=== PATIENT | female | born 1955 | race Caucasian/White ===

== ENCOUNTER 2017-03-15 14:03 | Inpatient (IN) | payer OTHER ==
[~2017-03-15] VITALS: Ht 152.4 cm; Wt 41.5 kg
[~2017-03-15 14:03] MED LIST: ACYC-114 PO; ALPR-475 PO; CITA20TA9 PO; CLOP75TA22 PO; LANS15TA5 PO; LEVO25TA2 PO; METO50TA82 PO; OXYC-302 PO; ROSU5TAB PO; SOLI5TAB PO; TRAZ150T68 PO
[2017-03-15] MEDS ORDERED: DILTIAZEM 5 MG/ML, 5ML IVPush STA (14:34)
[2017-03-15] MEDS ORDERED: DILTIAZEM 125 MG in DEXTROSE 5% 100 ML IV SCH (14:34)
[2017-03-15] MEDS ORDERED: SODIUM CHLORIDE FLUSH 10ML SYR IVF ONE (15:00)
[2017-03-15] MEDS ORDERED: SODIUM CHLORIDE 0.9% 1,000ML IVBOLUS ONE (15:00)
[2017-03-15 15:04] LABS: ASPARTATE AMINO TRANSFERASE 31 U/L (15-37); BLOOD UREA NITROGEN 27 mg/dL (7-18)
[2017-03-15] MEDS ORDERED: DILTIAZEM 5 MG/ML, 5ML ONE (15:10)
[2017-03-15 15:12] LABS: IS PT STATUS REG ER OR PRE ER? YES
[2017-03-15] MEDS ORDERED: HEPARIN 25,000 UNITS/500ML PMX 500 ML ONE (15:59)
[2017-03-15] MEDS ORDERED: HEPARIN 5,000 UNITS/ML, 1ML ONE (15:59)
[2017-03-15] MEDS ORDERED: HEPARIN 5,000 UNITS/ML, 1ML IV PRN ×2 (16:00→17:00)
[2017-03-15] MEDS ORDERED: HEPARIN 5,000 UNITS/ML, 1ML IV ONE ×2 (16:00→17:00)
[2017-03-15] MEDS ORDERED: HEPARIN 25,000 UNITS/500ML PMX 500 ML IV PRN ×2 (16:00→17:00)
[2017-03-15 16:31] VITALS: BP 124/67
[2017-03-15] MEDS ORDERED: HYDROcodone/APAP 5/325 TABLET PO PRN (18:00)
[2017-03-15] MEDS ORDERED: ONDANSETRON 2MG/ML, 2ML IVPush PRN (18:00)
[2017-03-15] MEDS ORDERED: DILTIAZEM 5 MG/ML, 5ML IVPush PRN (18:00)
[2017-03-15] MEDS ORDERED: morphine SULFATE 10 MG/ML, 1ML IVPush PRN (18:00)
[2017-03-15] MEDS ORDERED: hydrALAzine 20 MG/ML, 1ML IVPush PRN (18:00)
[2017-03-15] MEDS ORDERED: ACETAMINOPHEN 325 MG TABLET PO PRN (18:00)
[2017-03-15 20:00] VITALS: BP 116/60
[2017-03-15] MEDS: DILTIAZEM 60 MG TABLET PO SCH (20:19)
[2017-03-15 22:54] LABS: IS PT STATUS REG ER OR PRE ER? NO
[2017-03-16] MEDS: TEMAZEPAM 15 MG CAPSULE PO PRN ×2 (00:23→22:33)
[2017-03-16 01:15] VITALS: BP 127/66
[2017-03-16] MEDS: DILTIAZEM 60 MG TABLET PO SCH ×3 (02:45→21:00)
[2017-03-16 04:46] LABS: ASPARTATE AMINO TRANSFERASE 26 U/L (15-37); BLOOD UREA NITROGEN 24 mg/dL (7-18)
[2017-03-16 04:52] LABS: IS PT STATUS REG ER OR PRE ER? NO
[2017-03-16] MEDS: LEVOTHYROXINE 25 MCG TABLET PO SCH (06:12)
[2017-03-16 06:34] VITALS: BP 108/61
[2017-03-16] MEDS: TEMPLATE NON-FORMULARY MED. (Solifenacin Succinate** (Vesicare**) 5 MG) PO SCH (08:19)
[2017-03-16] MEDS: PANTOPROZOLE 40MG TABLET PO SCH (08:23)
[2017-03-16] MEDS ORDERED: CLOPIDOGREL 75 MG TABLET PO SCH (09:00)
[2017-03-16] MEDS ORDERED: ATORVASTATIN 10 MG TABLET PO SCH (09:00)
[2017-03-16 10:35] LABS: DAU SCREEN DISCLAIMER
[2017-03-16] MEDS ORDERED: TRAZODONE 50MG TABLET PO PRN (12:30)
[2017-03-16 13:16] VITALS: BP 115/64
[2017-03-16] MEDS: CITALOPRAM 20 MG TABLET PO SCH (16:56)
[2017-03-16] MEDS ORDERED: HEPARIN 25,000 UNITS/500ML PMX 500 ML IV PRN (17:00)
[2017-03-16 19:56] VITALS: BP 159/71
[2017-03-16 21:22] VITALS: BP 154/71
[2017-03-16] MEDS: DABIGATRAN 150 MG CAPSULE PO SCH (21:28)
[2017-03-17 03:00] VITALS: BP 133/52
[2017-03-17 05:51] VITALS: BP 150/63
[2017-03-17] MEDS: LEVOTHYROXINE 25 MCG TABLET PO SCH (05:57)
[2017-03-17] MEDS: DILTIAZEM 60 MG TABLET PO SCH (07:22)
[2017-03-17] MEDS: TEMPLATE NON-FORMULARY MED. (Solifenacin Succinate** (Vesicare**) 5 MG) PO SCH (07:22)
[2017-03-17] MEDS: DABIGATRAN 150 MG CAPSULE PO SCH (07:30)
[2017-03-17] MEDS: PANTOPROZOLE 40MG TABLET PO SCH (07:30)
[2017-03-17] MEDS: CITALOPRAM 20 MG TABLET PO SCH (07:30)
[2017-03-17 07:45] VITALS: BP 127/59
[2017-03-17] MEDS ORDERED: DABI150C PO (13:18)
[2017-03-17 13:20] VITALS: BP 135/61
== END 2017-03-17 14:37 | disposition home or self-care (01) | DRG 308 ==
LOC: ED 14:53 → EDIP 15:30 → 5SO 16:24
PROVIDERS: ADMIT Hospitalist; ATTEND Internal Medicine
DX: I48.0 Paroxysmal atrial fibrillation (principal); N17.0 Acute kidney failure with tubular necrosis; I11.9 Hypertensive heart disease without heart failure; E03.9 Hypothyroidism, unspecified; E78.5 Hyperlipidemia, unspecified; F12.90 Cannabis use, unspecified, uncomplicated; K21.9 Gastro-esophageal reflux disease without esophagitis; R00.1 Bradycardia, unspecified; M32.9 Systemic lupus erythematosus, unspecified; M19.90 Unspecified osteoarthritis, unspecified site; F32.9 Major depressive disorder, single episode, unspecified; I08.3 Combined rheumatic disorders of mitral, aortic and tricuspid valves; I25.10 Atherosclerotic heart disease of native coronary artery without angina pectoris; I25.2 Old myocardial infarction; Z86.73 Personal history of transient ischemic attack (TIA), and cerebral infarction without residual deficits; Z87.891 Personal history of nicotine dependence; Z95.5 Presence of coronary angioplasty implant and graft; Z98.84 Bariatric surgery status; Z79.01 Long term (current) use of anticoagulants
CPT/HCPCS: 36415; 71010; 80053; 80307; 81003; 83735; 83880; 84100; 84443; 84484; 85025; 85520; 85610; 85730; 93005; 93306; 96365; 96375; J1644; J7030

== ENCOUNTER 2017-07-16 11:07 | Observation (INO) | payer OTHER ==
[2017-07-13 14:31] VITALS: BP 134/63
[2017-07-13 14:41] LABS: HEMOGLOBIN 14.3 g/dL (11.7-16.4); WHITE BLOOD COUNT 6.9 x10^3/uL (3.4-10)
[2017-07-13 14:48] LABS: BLOOD UREA NITROGEN 21 mg/dL (7-18)
[~2017-07-16] VITALS: Ht 152.4 cm; Wt 42.6 kg
[~2017-07-16 11:07] MED LIST changes: +CEFAZOLIN 1,000 MG ONE; -CLOP75TA22 PO; +CLOP75TA52 PO; +DABI150C PO; +DEXAMETHASONE 4 MG/ML, 1ML ONE; -LANS15TA5 PO; +LANS15TA6 PO; +ONDANSETRON 2MG/ML, 2ML ONE; +PROPOFOL 10 MG/ML, 20ML ONE; +ROCURONIUM 10 MG/ML ONE; -SOLI5TAB PO; +SOLI5TAB2 PO; +SUCCINYLCHOLINE 20 MG/ML, 10ML ONE; +TRAZ150T62 PO; -TRAZ150T68 PO
[2017-07-16] MEDS ORDERED: SODIUM CHLORIDE 0.9% 1,000 ML IV SCH (11:26)
[2017-07-16] MEDS ORDERED: CEFAZOLIN PMX 1GM/50ML 50 ML IVPB ONE (11:30)
[2017-07-16] MEDS ORDERED: LIDOCAINE 2%, 20ML ONE (12:14)
[2017-07-16] MEDS ORDERED: CEFAZOLIN 1,000 MG ONE (12:14)
[2017-07-16] MEDS ORDERED: FENTANYL PF 100 MCG/2ML ONE (12:20)
[2017-07-16] MEDS ORDERED: MIDAZOLAM 1 MG/ML, 5ML ONE (12:20)
[2017-07-16] MEDS ORDERED: PROMETHAZINE 25 MG/ML, 1ML IV PRN (15:00)
[2017-07-16] MEDS ORDERED: OXYcodone 5 MG/5 ML ORAL.SOL UDC PO PRN (15:00)
[2017-07-16] MEDS ORDERED: ACETAMINOPHEN 325 MG TABLET PO PRN (15:00)
[2017-07-16] MEDS ORDERED: LABETALOL 5MG/ML, 20ML IV PRN (15:00)
[2017-07-16] MEDS ORDERED: EPHEDRINE 50 MG/ML, 1ML IVPush PRN (15:00)
[2017-07-16] MEDS ORDERED: MIDAZOLAM 1 MG/ML, 2ML IV PRN (15:00)
[2017-07-16] MEDS ORDERED: MEPERIDINE/PF 25MG/0.5ML IVPush PRN (15:00)
[2017-07-16] MEDS ORDERED: HYDROmorphone 1 MG/ML, 1ML IV PRN (15:00)
[2017-07-16] MEDS ORDERED: ONDANSETRON 2MG/ML, 2ML IVPush PRN (15:00)
[2017-07-16] MEDS ORDERED: FENTANYL PF 100 MCG/2ML IV PRN (15:00)
[2017-07-16] MEDS ORDERED: OXYcodone 5 MG/5 ML ORAL.SOL UDC ONE (15:23)
[2017-07-16] MEDS ORDERED: ZOLPIDEM 5MG TABLET PO PRN (16:00)
[2017-07-16] MEDS ORDERED: VANCOMYCIN PMX 1GM/200ML 200 ML IVPB SCH (16:00)
[2017-07-16 16:48] VITALS: BP 126/54
[2017-07-16] MEDS ORDERED: ACYC-113 PO (17:00)
[2017-07-16] MEDS ORDERED: DEXL60CA2 PO (17:00)
[2017-07-16] MEDS ORDERED: HYDROcodone/APAP 5/325 TABLET PO PRN (17:30)
[2017-07-16] MEDS: HYDROcodone/APAP 5/325 TABLET PO PRN (18:38)
[2017-07-16 19:41] VITALS: BP 121/68
[2017-07-16] MEDS ORDERED: ATORVASTATIN 10 MG TABLET PO SCH (21:00)
[2017-07-16] MEDS ORDERED: TRAZODONE 150MG TABLET PO SCH (21:00)
[2017-07-16] MEDS: OXYBUTYNIN CHLORIDE 5 MG TABLET PO SCH (21:49)
[2017-07-16] MEDS: SODIUM CHLORIDE FLUSH 10ML SYR IVF SCH (21:50)
[2017-07-17 01:59] VITALS: BP 144/72
[2017-07-17] MEDS ORDERED: LEVOTHYROXINE 25 MCG TABLET PO SCH (06:00)
[2017-07-17] MEDS: HYDROcodone/APAP 5/325 TABLET PO PRN (06:09)
[2017-07-17] MEDS ORDERED: PANTOPROZOLE 40MG TABLET PO SCH (07:30)
[2017-07-17] MEDS ORDERED: CITALOPRAM 20 MG TABLET ONE (07:57)
[2017-07-17 08:01] VITALS: BP 111/66
[2017-07-17] MEDS: OXYBUTYNIN CHLORIDE 5 MG TABLET PO SCH (08:03)
[2017-07-17] MEDS: SODIUM CHLORIDE FLUSH 10ML SYR IVF SCH (08:03)
[2017-07-17] MEDS ORDERED: CITALOPRAM 20 MG TABLET PO SCH (09:00)
[2017-07-17] MEDS ORDERED: HYDR-3240 PO (09:13)
[2017-07-17] MEDS ORDERED: ASPI-515 PO (09:13)
== END 2017-07-17 10:50 | disposition home or self-care (01) ==
LOC: CACL 11:07 → ORIP 15:33 → 5SO 15:47 → DCLOUNGE 07-17 10:43
PROVIDERS: ADMIT Internal Medicine Cardiovascular Disease; ATTEND Internal Medicine Cardiovascular Disease
DX: I49.5 Sick sinus syndrome (principal); I48.0 Paroxysmal atrial fibrillation; R55 Syncope and collapse; I10 Essential (primary) hypertension; I25.10 Atherosclerotic heart disease of native coronary artery without angina pectoris; E03.9 Hypothyroidism, unspecified; E78.00 Pure hypercholesterolemia, unspecified
CPT/HCPCS: 33208; 36415; 71010; 80048; 85025; 96365; C1779; C1785; C1892; G0378; J0330; J0690; J1100; J2250; J2405; J2704; J3010; J3370; J3490

== ENCOUNTER → 2018-03-14 | Outpatient (CLI) | payer MEDICARE ==
[~2018-03-14] MED LIST changes: +ACYC-113 PO; +ASPI-515 PO; -CEFAZOLIN 1,000 MG ONE; -DEXAMETHASONE 4 MG/ML, 1ML ONE; +DEXL60CA2 PO; +HYDR-3240 PO; -ONDANSETRON 2MG/ML, 2ML ONE; -PROPOFOL 10 MG/ML, 20ML ONE; -ROCURONIUM 10 MG/ML ONE; -SUCCINYLCHOLINE 20 MG/ML, 10ML ONE
== END | disposition home or self-care (01) ==
LOC: RAD 13:49
PROVIDERS: ATTEND Family Medicine
DX: M48.061 Spinal stenosis, lumbar region without neurogenic claudication (principal); M47.16 Other spondylosis with myelopathy, lumbar region; M47.896 Other spondylosis, lumbar region; M41.86 Other forms of scoliosis, lumbar region
CPT/HCPCS: 72148

== ENCOUNTER → 2018-04-11 | Outpatient (CLI) | payer MEDICARE | END | disposition home or self-care (01) | LOC: CVU 14:31 | PROVIDERS: ATTEND Family Medicine | DX: I73.9 Peripheral vascular disease, unspecified (principal); I25.10 Atherosclerotic heart disease of native coronary artery without angina pectoris; E11.9 Type 2 diabetes mellitus without complications; E78.5 Hyperlipidemia, unspecified; G45.9 Transient cerebral ischemic attack, unspecified | CPT/HCPCS: 93922 ==

== ENCOUNTER → 2018-11-11 | Outpatient (CLI) | payer MEDICARE | END | disposition home or self-care (01) | LOC: CFH 12:46 | PROVIDERS: ATTEND Internal Medicine Cardiovascular Disease | DX: I08.3 Combined rheumatic disorders of mitral, aortic and tricuspid valves (principal); I11.9 Hypertensive heart disease without heart failure; I25.10 Atherosclerotic heart disease of native coronary artery without angina pectoris; M47.817 Spondylosis without myelopathy or radiculopathy, lumbosacral region; M48.061 Spinal stenosis, lumbar region without neurogenic claudication; M51.37 Other intervertebral disc degeneration, lumbosacral region; M48.07 Spinal stenosis, lumbosacral region; M41.86 Other forms of scoliosis, lumbar region; M25.78 Osteophyte, vertebrae; I49.5 Sick sinus syndrome; I25.2 Old myocardial infarction; I48.91 Unspecified atrial fibrillation; Z79.01 Long term (current) use of anticoagulants; Z95.0 Presence of cardiac pacemaker; Z86.73 Personal history of transient ischemic attack (TIA), and cerebral infarction without residual deficits; Z95.818 Presence of other cardiac implants and grafts | CPT/HCPCS: 72148; 93306 ==

== ENCOUNTER → 2018-11-29 | Outpatient (CLI) | payer MEDICARE ==
[~2018-11-29] MED LIST changes: +escitalopram PO
[2018-11-29 13:55] LABS: BASOPHILS # (AUTO) 0.04 x10^3/uL (0-0.1); BASOPHILS % (AUTO) 1 % (0-1); EOSINOPHILS # (AUTO) 0.18 x10^3/uL (0-0.4); EOSINOPHILS % (AUTO) 3 % (1-7); LYMPHOCYTES # (AUTO) 1.84 x10^3/uL (1-3.4); LYMPHOCYTES % (AUTO) 28 % (22-44); MD NO; MEAN CORPUSCULAR HEMOGLOBIN 32.4 pg (27.0-34.8); MEAN CORPUSCULAR HGB CONC 33.8 g/dL (32.4-35.8); MEAN CORPUSCULAR VOLUME 95.9 fL (80-100); MEAN PLATELET VOLUME 8.3 fL (7.4-10.4); MONOCYTES # (AUTO) 0.41 x10^3/uL (0.2-0.8); MONOCYTES % (AUTO) 6 % (2-9); NEUTROPHILS # (AUTO) 4.04 x10^3/uL (1.8-6.8); NEUTROPHILS % (AUTO) 62 % (42-75); PLATELET COUNT 201 x10^3/uL (130-400); RED BLOOD COUNT 3.89 x10^6/uL (3.82-5.3); RED CELL DISTRIBUTION WIDTH 15.4 % (9.6-15.2)
[2018-11-29 14:03] LABS: INTERNATIONAL NORMALIZED RATIO 1.1 (0.93-1.1); PROTHROMBIN TIME 11.5 Seconds (9.6-11.5)
[2018-11-29 14:04] LABS: ANION GAP 6 mmol/L (5-15); CALCIUM 8.9 mg/dL (8.5-10.1); CHLORIDE 107 mmol/L (98-107); CREATININE 1.14 mg/dL (0.55-1.02)
== END | disposition home or self-care (01) ==
LOC: STAR 12:30
PROVIDERS: ATTEND Neurological Surgery
DX: Z01.818 Encounter for other preprocedural examination (principal); M43.10 Spondylolisthesis, site unspecified
CPT/HCPCS: 36415; 71046; 80048; 85025; 85610; 85730; 93005

== ENCOUNTER 2019-07-02 13:00 | Outpatient (CLI) | payer MEDICARE ==
[~2019-07-02 13:00] MED LIST changes: -ALPR-475 PO; +ALPR0.5T7 PO; +APIX5TAB PO; +DILT180C53 PO; +ESCI20TA PO; +GABA100C PO; +GABA300C10 PO; +METO25TA91 PO
== END 2019-07-02 23:59 | disposition home or self-care (01) ==
LOC: RAD 13:00
PROVIDERS: ATTEND Neurological Surgery
DX: M51.36 Other intervertebral disc degeneration, lumbar region (principal); M48.061 Spinal stenosis, lumbar region without neurogenic claudication; N28.1 Cyst of kidney, acquired; M79.662 Pain in left lower leg; M79.661 Pain in right lower leg
CPT/HCPCS: 72148

== ENCOUNTER 2019-07-25 16:40 | Inpatient (IN) | payer MEDICARE ==
[~2019-07-25] VITALS: Ht 152.4 cm; Wt 47.0 kg
--- NOTE | 2019-07-25 17:11 | NUR ---
PT SENT TO ED FROM [facility]. PT C/O HI HR X10 DAYS. DENIES CP, BUT CAN FEEL HEART BEATING IN HER CHEST. PACEMAKER PLACED WITHIN THE LAST YEAR. CONNECTED TO MONITORING. CALL LIGHT IN REACH. AT BEDSIDE. MD AT BEDSIDE, AWAITING ORDERS AT THIS TIME.
[2019-07-25] MEDS ORDERED: DILTIAZEM 5 MG/ML, 5ML IV ONE (17:30)
[2019-07-25] MEDS ORDERED: ONDANSETRON 2MG/ML, 2ML IVPush ONE (17:30)
--- NOTE | 2019-07-25 17:42 | NUR ---
TASK RN: RECEIVED BEDSIDE REPORT FROM SAM JAVIER.
[2019-07-25] MEDS ORDERED: ONDANSETRON 2MG/ML, 2ML ONE (17:44)
[2019-07-25] MEDS ORDERED: DILTIAZEM 5 MG/ML, 5ML ONE (17:44)
[2019-07-25 17:56] LABS: ALBUMIN 3.3 g/dL (3.4-5.0); ANION GAP 3 mmol/L (5-15); CALCIUM 7.8 mg/dL (8.5-10.1); CHLORIDE 111 mmol/L (98-107)
--- NOTE | 2019-07-25 17:56 | NUR ---
TASK RN: medication adminstered per order. pt hr now 85-90, nadn. pt tolerated with no complications.
[2019-07-25 17:57] LABS: CREATININE 1.05 mg/dL (0.55-1.02)
--- NOTE | 2019-07-25 18:22 | NUR ---
LATE ENTRY FOR 1814: BEDSIDE REPORT TO SAM JAVIER.
--- NOTE | 2019-07-25 19:21 | NUR ---
PT AMBULATED TO RESTROOM WITH STEADY GAIT. Addendum: 07/25/19 at 1930 by NOAH PT STATES SHE FEELS A LITTLE DIZZY WHILE WALKING AND WANTS TO TALK TO THE MD AGAIN. MD NOTIFIED.
--- NOTE | 2019-07-25 19:42 | NUR ---
NEW ORDERS ADDED AT THIS TIME.
--- NOTE | 2019-07-25 20:08 | NUR ---
HOSPITALIST AT BEDSIDE.
[2019-07-25 20:22] LABS: TROPONIN I < 0.015 ng/mL (0.000-0.045)
[2019-07-25] MEDS ORDERED: BISACODYL 10 MG SUPP PR PRN (20:30)
[2019-07-25] MEDS ORDERED: ONDANSETRON ODT 4 MG PO PRN (20:30)
[2019-07-25] MEDS ORDERED: ACETAMINOPHEN 325 MG TABLET PO PRN (20:30)
[2019-07-25] MEDS ORDERED: POLYETHYLENE GLYCOL 17 GM PACKET PO PRN (20:30)
--- NOTE | 2019-07-25 20:51 | NUR ---
REPORT GIVEN TO ANISH VARGAS.
[2019-07-25 20:58] LABS: BASOPHILS # (AUTO) 0.03 x10^3/uL (0-0.1); BASOPHILS % (AUTO) 1 % (0-1); EOSINOPHILS # (AUTO) 0.16 x10^3/uL (0-0.4); EOSINOPHILS % (AUTO) 4 % (1-7); LYMPHOCYTES # (AUTO) 1.85 x10^3/uL (1-3.4); LYMPHOCYTES % (AUTO) 44 % (22-44); MD NO; MEAN CORPUSCULAR HEMOGLOBIN 24.4 pg (27.0-34.8); MEAN PLATELET VOLUME 9.3 fL (7.4-10.4); MONOCYTES # (AUTO) 0.32 x10^3/uL (0.2-0.8); MONOCYTES % (AUTO) 8 % (2-9); NEUTROPHILS # (AUTO) 1.84 x10^3/uL (1.8-6.8); NEUTROPHILS % (AUTO) 44 % (42-75); PLATELET COUNT 198 x10^3/uL (130-400); RED BLOOD COUNT 4.12 x10^6/uL (3.82-5.3)
[2019-07-25] MEDS ORDERED: TEMPLATE NON-FORMULARY MED. (Solifenacin Succinate** (Vesicare**) 5 MG) PO SCH (21:00)
[2019-07-25 21:30] VITALS: BP 113/62
[2019-07-25] MEDS ORDERED: TRAZODONE 100MG TABLET ONE (21:33)
[2019-07-25] MEDS ORDERED: GABAPENTIN 100 MG CAPSULE ONE (21:33)
[2019-07-25] MEDS: SODIUM CHLORIDE FLUSH 10ML SYR IVF SCH (21:42)
[2019-07-25] MEDS: GABAPENTIN 100 MG CAPSULE PO SCH (21:43)
[2019-07-25] MEDS: ATORVASTATIN 20 MG TABLET PO SCH (21:43)
[2019-07-25] MEDS: APIXABAN 5 MG TABLET PO SCH (21:43)
[2019-07-25] MEDS: TRAZODONE 100MG TABLET PO SCH (21:43)
[2019-07-25 21:59] VITALS: BP 128/89
[2019-07-26 02:13] VITALS: BP 95/59
[2019-07-26] MEDS: LEVOTHYROXINE 25 MCG TABLET PO SCH (05:07)
[2019-07-26 05:57] LABS: BASOPHILS # (AUTO) 0.06 x10^3/uL (0-0.1); BASOPHILS % (AUTO) 1 % (0-1); EOSINOPHILS # (AUTO) 0.19 x10^3/uL (0-0.4); EOSINOPHILS % (AUTO) 4 % (1-7); LYMPHOCYTES # (AUTO) 2.24 x10^3/uL (1-3.4); LYMPHOCYTES % (AUTO) 50 % (22-44); MD NO; MEAN CORPUSCULAR HEMOGLOBIN 25.1 pg (27.0-34.8); MEAN CORPUSCULAR HGB CONC 30.9 g/dL (32.4-35.8); MEAN CORPUSCULAR VOLUME 81.4 fL (80-100); MEAN PLATELET VOLUME 9.3 fL (7.4-10.4); MONOCYTES # (AUTO) 0.45 x10^3/uL (0.2-0.8); MONOCYTES % (AUTO) 10 % (2-9); NEUTROPHILS % (AUTO) 35 % (42-75); PLATELET COUNT 193 x10^3/uL (130-400); RED BLOOD COUNT 3.72 x10^6/uL (3.82-5.3); RED CELL DISTRIBUTION WIDTH 21.8 % (9.6-15.2)
[2019-07-26 06:02] LABS: ALBUMIN 3.1 g/dL (3.4-5.0); ANION GAP 3 mmol/L (5-15); CALCIUM 7.9 mg/dL (8.5-10.1); CHLORIDE 113 mmol/L (98-107)
[2019-07-26 06:10] LABS: ALANINE AMINOTRANSFERASE 18 U/L (12-78); ALKALINE PHOSPHATASE 111 U/L (45-117); BILIRUBIN,TOTAL 0.2 mg/dL (0.2-1.0); CREATININE 1.08 mg/dL (0.55-1.02); TROPONIN I < 0.015 ng/mL (0.000-0.045)
[2019-07-26 07:15] VITALS: BP 82/50
[2019-07-26] MEDS ORDERED: METOPROLOL SUCCINATE 25 MG TAB.ER.24H PO SCH ×2 (09:00→21:00)
[2019-07-26] MEDS: SENNA/DOCUSATE TABLET PO SCH (09:58)
[2019-07-26] MEDS: DILTIAZEM CD 180 MG CAP.ER.24H PO SCH (10:12)
[2019-07-26] MEDS: APIXABAN 5 MG TABLET PO SCH ×2 (10:13→21:23)
[2019-07-26] MEDS: PANTOPROZOLE 40MG TABLET PO SCH (10:13)
[2019-07-26] MEDS: OXYBUTYNIN CHLORIDE 5 MG TABLET PO SCH ×2 (10:14→21:23)
[2019-07-26] MEDS: GABAPENTIN 100 MG CAPSULE PO SCH ×2 (10:14→21:22)
[2019-07-26] MEDS: ESCITALOPRAM 10MG TABLET PO SCH (10:14)
[2019-07-26] MEDS: SODIUM CHLORIDE FLUSH 10ML SYR IVF SCH ×2 (10:15→21:24)
[2019-07-26] MEDS: METOPROLOL SUCCINATE 25 MG TAB.ER.24H PO SCH ×2 (10:25→21:24)
[2019-07-26] MEDS ORDERED: SODIUM CHLORIDE 0.9%, 500ML IVBOLUS ONE (10:30)
[2019-07-26 11:50] VITALS: BP 102/57
[2019-07-26 13:40] VITALS: BP 98/60
[2019-07-26 20:46] VITALS: BP 133/75
[2019-07-26 21:21] VITALS: BP 124/71
[2019-07-26] MEDS: ATORVASTATIN 20 MG TABLET PO SCH (21:23)
[2019-07-26] MEDS: TRAZODONE 100MG TABLET PO SCH (21:23)
[2019-07-27 02:56] VITALS: BP 127/82
[2019-07-27] MEDS: LEVOTHYROXINE 25 MCG TABLET PO SCH (06:13)
[2019-07-27 07:57] VITALS: BP 111/69
[2019-07-27] MEDS: GABAPENTIN 100 MG CAPSULE PO SCH (08:52)
[2019-07-27] MEDS: SENNA/DOCUSATE TABLET PO SCH (08:52)
[2019-07-27] MEDS: PANTOPROZOLE 40MG TABLET PO SCH (08:52)
[2019-07-27] MEDS: DILTIAZEM CD 180 MG CAP.ER.24H PO SCH (08:52)
[2019-07-27] MEDS: METOPROLOL SUCCINATE 25 MG TAB.ER.24H PO SCH (08:52)
[2019-07-27] MEDS: ESCITALOPRAM 10MG TABLET PO SCH (08:53)
[2019-07-27] MEDS: OXYBUTYNIN CHLORIDE 5 MG TABLET PO SCH (08:53)
[2019-07-27] MEDS: APIXABAN 5 MG TABLET PO SCH (08:53)
[2019-07-27] MEDS: SODIUM CHLORIDE FLUSH 10ML SYR IVF SCH (08:53)
[2019-07-27] MEDS ORDERED: METO25TA91 PO (11:45)
[2019-07-27] MEDS ORDERED: LEVO50TA PO (11:45)
[2019-07-27] MEDS ORDERED: FLU VACC QS2019-20 36MOS UP/PF 0.5 ML IM-VACC ONE (12:30)
[2019-07-28] MEDS ORDERED: PROPOFOL 10 MG/ML, 20ML ONE (13:31)
[2019-07-28] MEDS ORDERED: SUCCINYLCHOLINE 20 MG/ML, 10ML ONE (13:31)
[2019-07-28] MEDS ORDERED: LIDOCAINE-MPF 2% ,5ML ONE (13:31)
== END 2019-07-27 13:56 | disposition home or self-care (01) | DRG 309 ==
LOC: ED 19:58 → EDIP 20:15 → 5SO 21:23
PROVIDERS: ADMIT Internal Medicine; ATTEND Family Medicine
DX: I48.91 Unspecified atrial fibrillation (principal); D68.69 Other thrombophilia; Z79.01 Long term (current) use of anticoagulants; E03.9 Hypothyroidism, unspecified; F32.9 Major depressive disorder, single episode, unspecified; I10 Essential (primary) hypertension; I25.10 Atherosclerotic heart disease of native coronary artery without angina pectoris; I25.2 Old myocardial infarction; I48.92 Unspecified atrial flutter; K21.9 Gastro-esophageal reflux disease without esophagitis; Z80.49 Family history of malignant neoplasm of other genital organs; Z88.2 Allergy status to sulfonamides; Z86.73 Personal history of transient ischemic attack (TIA), and cerebral infarction without residual deficits; Z95.0 Presence of cardiac pacemaker; Z95.5 Presence of coronary angioplasty implant and graft; I95.9 Hypotension, unspecified
CPT/HCPCS: 36415; 71045; 80048; 80053; 82040; 83735; 83880; 84443; 84484; 85025; 90686; 93005; 93306; 96374; 99285; G0378; J2405; J2704; J0330; J7040

== ENCOUNTER 2019-10-10 06:49 | Day surgery (SDC) | payer MEDICARE ==
[2019-10-08 15:56] LABS: BASOPHILS # (AUTO) 0.05 x10^3/uL (0-0.1); BASOPHILS % (AUTO) 1 % (0-1); EOSINOPHILS # (AUTO) 0.22 x10^3/uL (0-0.4); EOSINOPHILS % (AUTO) 3 % (1-7); LYMPHOCYTES # (AUTO) 2.14 x10^3/uL (1-3.4); LYMPHOCYTES % (AUTO) 26 % (22-44); MD NO; MEAN CORPUSCULAR HEMOGLOBIN 24.7 pg (27.0-34.8); MEAN CORPUSCULAR HGB CONC 31.2 g/dL (32.4-35.8); MEAN PLATELET VOLUME 8.1 fL (7.4-10.4); MONOCYTES # (AUTO) 0.48 x10^3/uL (0.2-0.8); MONOCYTES % (AUTO) 6 % (2-9); NEUTROPHILS # (AUTO) 5.42 x10^3/uL (1.8-6.8); NEUTROPHILS % (AUTO) 65 % (42-75); PLATELET COUNT 227 x10^3/uL (130-400); RED BLOOD COUNT 3.57 x10^6/uL (3.82-5.3); RED CELL DISTRIBUTION WIDTH 21.4 % (9.6-15.2)
[2019-10-08 15:58] LABS: ALANINE AMINOTRANSFERASE 15 U/L (12-78); ALBUMIN 3.7 g/dL (3.4-5.0); ANION GAP 9 mmol/L (5-15); CALCIUM 8.3 mg/dL (8.5-10.1); CHLORIDE 102 mmol/L (98-107); CREATININE 1.16 mg/dL (0.55-1.02)
[2019-10-08 16:00] LABS: ALKALINE PHOSPHATASE 110 U/L (45-117); BILIRUBIN,TOTAL 0.3 mg/dL (0.2-1.0); TOTAL PROTEIN 7.8 g/dL (6.4-8.2)
[~2019-10-10] VITALS: Ht 152.4 cm; Wt 47.0 kg
[~2019-10-10 06:49] MED LIST changes: +ALBU8.5H8 INH; +DULO30CA2 PO; +FLUT1AER INH; +HYDR-3237 PO; +LEVO50TA PO; +LEVO50TA5 PO; +metoprolol PO
[2019-10-10 07:25] VITALS: BP 105/67
[2019-10-10] MEDS ORDERED: PROPOFOL 10 MG/ML, 20ML ONE (09:07)
[2019-10-10] MEDS ORDERED: EPHEDRINE 50 MG/ML, 1ML ONE (09:12)
[2019-10-10] MEDS ORDERED: FENTANYL PF 100 MCG/2ML IV PRN (09:30)
== END 2019-10-10 11:25 | disposition home or self-care (01) ==
LOC: OUT 06:49
PROVIDERS: ATTEND Internal Medicine Gastroenterology
DX: K92.1 Melena (principal); K21.9 Gastro-esophageal reflux disease without esophagitis; K44.9 Diaphragmatic hernia without obstruction or gangrene; J44.9 Chronic obstructive pulmonary disease, unspecified; I25.10 Atherosclerotic heart disease of native coronary artery without angina pectoris; D64.9 Anemia, unspecified; F32.9 Major depressive disorder, single episode, unspecified; I25.2 Old myocardial infarction; I10 Essential (primary) hypertension; E03.9 Hypothyroidism, unspecified; I48.0 Paroxysmal atrial fibrillation; F15.90 Other stimulant use, unspecified, uncomplicated; Z95.0 Presence of cardiac pacemaker; Z88.1 Allergy status to other antibiotic agents; Z72.89 Other problems related to lifestyle; Z87.891 Personal history of nicotine dependence
CPT/HCPCS: 36415; 43239; 45378; 71046; 80053; 85025; 88305; 93005; J2704

== ENCOUNTER 2019-10-12 15:25 | Emergency (ER) | payer MEDICARE ==
[~2019-10-12] VITALS: Ht 152.4 cm; Wt 46.0 kg
[2019-10-12] MEDS ORDERED: ACETAMINOPHEN 500 MG TABLET ONE (15:53)
[2019-10-12] MEDS ORDERED: ACETAMINOPHEN 500 MG TABLET PO ONE (16:00)
[2019-10-12 16:08] LABS: BASOPHILS % (AUTO) 0 % (0-1); EOSINOPHILS % (AUTO) 2 % (1-7); LYMPHOCYTES # (AUTO) 1.98 x10^3/uL (1-3.4); LYMPHOCYTES % (AUTO) 21 % (22-44); MD NO; MEAN CORPUSCULAR HEMOGLOBIN 24.6 pg (27.0-34.8); MEAN CORPUSCULAR VOLUME 79.4 fL (80-100); MONOCYTES # (AUTO) 0.51 x10^3/uL (0.2-0.8); MONOCYTES % (AUTO) 5 % (2-9); NEUTROPHILS # (AUTO) 6.97 x10^3/uL (1.8-6.8); NEUTROPHILS % (AUTO) 72 % (42-75); PLATELET COUNT 230 x10^3/uL (130-400); RED BLOOD COUNT 3.32 x10^6/uL (3.82-5.3); RED CELL DISTRIBUTION WIDTH 21.1 % (9.6-15.2)
[2019-10-12 16:15] VITALS: BP 102/51
--- NOTE | 2019-10-12 16:15 | NUR ---
BREAK RN: PT RESTING IN ROOM. REGULAR RESP. NO ACUTE DISTRESS NOTED. VS STABLE. CALL LIGHT IN PLACE. WILL CONTINUE TO MONIOR WHILE PRIMARY RN IS ON BREAK.
[2019-10-12 16:21] LABS: ALBUMIN 3.4 g/dL (3.4-5.0); ANION GAP 8 mmol/L (5-15); CALCIUM 8.7 mg/dL (8.5-10.1); CHLORIDE 109 mmol/L (98-107)
[2019-10-12 16:27] LABS: ALANINE AMINOTRANSFERASE 14 U/L (12-78); ALKALINE PHOSPHATASE 103 U/L (45-117); BILIRUBIN,TOTAL 0.3 mg/dL (0.2-1.0); CREATININE 1.31 mg/dL (0.55-1.02); TOTAL PROTEIN 7.3 g/dL (6.4-8.2); TROPONIN I < 0.015 ng/mL (0.000-0.045)
--- NOTE | 2019-10-12 16:33 | NUR ---
REPORT GIVEN TO SAM ANDERSON
--- NOTE | 2019-10-12 17:00 | NUR ---
Resting on [place] DANIELA noted. RR even and unlabored
== END 2019-10-12 17:40 | disposition home or self-care (01) ==
LOC: ED 16:01
DX: R55 Syncope and collapse (principal); D63.8 Anemia in other chronic diseases classified elsewhere; I10 Essential (primary) hypertension; I48.91 Unspecified atrial fibrillation; I25.2 Old myocardial infarction; Z86.73 Personal history of transient ischemic attack (TIA), and cerebral infarction without residual deficits; Z87.891 Personal history of nicotine dependence
CPT/HCPCS: 36415; 80053; 84484; 85025; 93005; 99283

== ENCOUNTER 2019-10-14 02:51 | Observation (INO) | payer MEDICARE ==
[~2019-10-14] VITALS: Ht 152.4 cm; Wt 50.7 kg
--- NOTE | 2019-10-14 02:59 | NUR ---
[facility] PRE ALERT CALLED AT 0246. PT. ARRIVAL WAS 0251. CANCELLED [facility] AT 0258.
[2019-10-14 03:11] LABS: BASOPHILS # (AUTO) 0.03 x10^3/uL (0-0.1); BASOPHILS % (AUTO) 0 % (0-1); EOSINOPHILS # (AUTO) 0.23 x10^3/uL (0-0.4); EOSINOPHILS % (AUTO) 3 % (1-7); LYMPHOCYTES # (AUTO) 1.86 x10^3/uL (1-3.4); LYMPHOCYTES % (AUTO) 23 % (22-44); MD NO; MEAN CORPUSCULAR HEMOGLOBIN 24.6 pg (27.0-34.8); MEAN CORPUSCULAR HGB CONC 31.8 g/dL (32.4-35.8); MEAN CORPUSCULAR VOLUME 77.3 fL (80-100); MEAN PLATELET VOLUME 8.5 fL (7.4-10.4); MONOCYTES # (AUTO) 0.45 x10^3/uL (0.2-0.8); MONOCYTES % (AUTO) 6 % (2-9); NEUTROPHILS # (AUTO) 5.48 x10^3/uL (1.8-6.8); NEUTROPHILS % (AUTO) 68 % (42-75); PLATELET COUNT 235 x10^3/uL (130-400); RED BLOOD COUNT 3.16 x10^6/uL (3.82-5.3); RED CELL DISTRIBUTION WIDTH 21.6 % (9.6-15.2)
[2019-10-14 03:22] LABS: ANION GAP 5 mmol/L (5-15); CALCIUM 8.1 mg/dL (8.5-10.1); CHLORIDE 108 mmol/L (98-107)
[2019-10-14 03:23] LABS: ALANINE AMINOTRANSFERASE 17 U/L (12-78); ALBUMIN 3.2 g/dL (3.4-5.0)
[2019-10-14 03:27] LABS: ALKALINE PHOSPHATASE 97 U/L (45-117); BILIRUBIN,TOTAL 0.2 mg/dL (0.2-1.0); TROPONIN I < 0.015 ng/mL (0.000-0.045)
[2019-10-14 04:18] VITALS: BP 95/57
[2019-10-14 04:20] VITALS: BP 95/57
[2019-10-14] MEDS ORDERED: SODIUM CHLORIDE 0.9% 1,000 ML IV SCH (05:42)
[2019-10-14] MEDS ORDERED: morphine SULFATE 10 MG/ML, 1ML IVPush PRN (06:00)
[2019-10-14] MEDS ORDERED: ASPIRIN 81 MG TABLET EC PO SCH (06:00)
[2019-10-14] MEDS ORDERED: NITROGLYCERIN 0.4 MG BOTTLE (25 TABS) SL PRN (06:00)
[2019-10-14] MEDS ORDERED: ACETAMINOPHEN 325 MG TABLET PO PRN (06:00)
[2019-10-14] MEDS ORDERED: ONDANSETRON 2MG/ML, 2ML IVPush PRN (06:00)
[2019-10-14 06:34] VITALS: BP 111/65
[2019-10-14 07:16] LABS: ABSOLUTE RETICS # 0.05 x10^6/uL (0.5-2.5); RED BLOOD COUNT 3.08 x10^6/uL (3.82-5.3); RETICULOCYTE COUNT % 1.61 % (0.5-1.5)
[2019-10-14 07:23] LABS: % IRON SATURATION 3 % (20-55); CHOLESTEROL, TOTAL 114 mg/dL (140-239); IRON LEVEL 12 mcg/dL (50-170); TOTAL IRON BINDING CAPACITY 415 mcg/dL (250-450); TRIGLYCERIDES 106 mg/dL (50-200); VLDL CHOLESTEROL 21 mg/dL (0-25)
[2019-10-14 07:27] LABS: CHOL/HDL RATIO 2.3; HDL CHOL % 43 % (28-40); HDL CHOLESTEROL (DIRECT) 49 mg/dL (40-60); LDL CHOLESTEROL,CALCULATED 44 mg/dL (54-169); LDL/HDL RATIO 0.9 (0.5-3.0); TRANSFERRIN 299 mg/dL (200-360); TROPONIN I < 0.015 ng/mL (0.000-0.045)
[2019-10-14] MEDS ORDERED: PANTOPROZOLE 40MG TABLET PO SCH (07:30)
[2019-10-14] MEDS ORDERED: REGADENOSON 0.4 MG/5 ML SYRINGE ONE (08:03)
[2019-10-14 12:20] VITALS: BP 111/61
[2019-10-14 12:30] LABS: TROPONIN I < 0.015 ng/mL (0.000-0.045)
[2019-10-14] MEDS ORDERED: ACID1TAB7 PO (14:09)
[2019-10-14] MEDS ORDERED: FERR-51 PO (14:20)
[2019-10-14] MEDS ORDERED: LACTOBACILLUS CHEW TABLET PO SCH (16:00)
== END 2019-10-14 15:25 | disposition home or self-care (01) ==
LOC: ED 03:00 → EDIP 03:44 → INTOOBSV 03:44 → 5SO 04:27 → DCLOUNGE 15:12
PROVIDERS: ADMIT Family Medicine; ATTEND Family Medicine
DX: I48.91 Unspecified atrial fibrillation (principal); R07.89 Other chest pain; D50.0 Iron deficiency anemia secondary to blood loss (chronic); K21.9 Gastro-esophageal reflux disease without esophagitis; I25.119 Atherosclerotic heart disease of native coronary artery with unspecified angina pectoris; E03.9 Hypothyroidism, unspecified; F32.9 Major depressive disorder, single episode, unspecified; I10 Essential (primary) hypertension; I25.2 Old myocardial infarction; R94.31 Abnormal electrocardiogram [ECG] [EKG]; R42 Dizziness and giddiness; G47.00 Insomnia, unspecified; Z87.891 Personal history of nicotine dependence; Z86.73 Personal history of transient ischemic attack (TIA), and cerebral infarction without residual deficits; Z79.899 Other long term (current) drug therapy; Z95.0 Presence of cardiac pacemaker
CPT/HCPCS: 36415; 71045; 78452; 80053; 80061; 82728; 83540; 83550; 83690; 84443; 84466; 84484; 85025; 85045; 86850; 86900; 93005; 93017; 96360; 96361; 99285; A9502; G0378; J2785; J7030

== ENCOUNTER 2020-06-29 16:11 | Emergency (ER) | payer MEDICARE ==
[~2020-06-29] VITALS: Ht 152.4 cm; Wt 62.0 kg
[~2020-06-29 16:11] MED LIST changes: +ACID1TAB7 PO; +FERR-51 PO
[2020-06-29] MEDS ORDERED: MAALOX/HYOSCYAMINE/LIDOCAINE 45 ML BTL PO ONE (17:30)
[2020-06-29] MEDS ORDERED: ACETAMINOPHEN 500 MG TABLET PO ONE (17:30)
[2020-06-29] MEDS ORDERED: ACETAMINOPHEN 500 MG TABLET ONE (18:00)
[2020-06-29] MEDS ORDERED: MAALOX/HYOSCYAMINE/LIDOCAINE 45 ML BTL ONE (18:00)
[2020-06-29 18:31] LABS: BASOPHILS % (AUTO) 0 % (0-1); EOSINOPHILS % (AUTO) 0 % (1-7); LYMPHOCYTES % (AUTO) 12 % (22-44); MEAN CORPUSCULAR HEMOGLOBIN 33.5 pg (27.0-34.8); MEAN CORPUSCULAR HGB CONC 33.1 g/dL (32.4-35.8); MEAN PLATELET VOLUME 8.5 fL (7.4-10.4); MONOCYTES % (AUTO) 8 % (2-9); NEUTROPHILS % (AUTO) 80 % (42-75); PLATELET COUNT 138 x10^3/uL (130-400); RED BLOOD COUNT 3.78 x10^6/uL (3.82-5.3); RED CELL DISTRIBUTION WIDTH 13.9 % (9.6-15.2)
[2020-06-29 18:36] LABS: ALANINE AMINOTRANSFERASE 38 U/L (12-78); ALBUMIN 3.2 g/dL (3.4-5.0); ANION GAP 8 mmol/L (5-15); CALCIUM 8.9 mg/dL (8.5-10.1); CHLORIDE 106 mmol/L (98-107); CREATININE 1.15 mg/dL (0.55-1.02)
[2020-06-29 18:38] LABS: MD NO
[2020-06-29 18:41] LABS: ALKALINE PHOSPHATASE 103 U/L (45-117); BILIRUBIN,TOTAL 0.8 mg/dL (0.2-1.0); TOTAL PROTEIN 7.5 g/dL (6.4-8.2); TROPONIN I < 0.015 ng/mL (0.000-0.045)
[2020-06-29] MEDS ORDERED: AZITHROMYCIN 250 MG TABLET ONE (19:26)
[2020-06-29 19:29] VITALS: BP 116/74
[2020-06-29] MEDS ORDERED: AZITHROMYCIN 500 MG TABLET PO ONE (19:30)
== END 2020-06-29 19:31 | disposition home or self-care (01) ==
LOC: ED 19:00
DX: J15.9 Unspecified bacterial pneumonia (principal); R94.31 Abnormal electrocardiogram [ECG] [EKG]; I10 Essential (primary) hypertension; J44.9 Chronic obstructive pulmonary disease, unspecified; I25.2 Old myocardial infarction; I48.91 Unspecified atrial fibrillation; Z86.73 Personal history of transient ischemic attack (TIA), and cerebral infarction without residual deficits; Z87.891 Personal history of nicotine dependence; Z98.61 Coronary angioplasty status
CPT/HCPCS: 36415; 71045; 80053; 83605; 83690; 83880; 84145; 84484; 85025; 87635; 93005; 99285

== ENCOUNTER 2020-07-10 18:09 | Emergency (ER) | payer MEDICARE, MEDICAID ==
[~2020-07-10] VITALS: Ht 152.4 cm; Wt 50.0 kg
--- NOTE | 2020-07-10 18:20 | NUR ---
324 ASA ADMINISTERED PRIOR TO ARRIVAL.
[2020-07-10 18:52] LABS: ALBUMIN 2.9 g/dL (3.4-5.0); ANION GAP 8 mmol/L (5-15); CALCIUM 8.9 mg/dL (8.5-10.1); CHLORIDE 107 mmol/L (98-107); CREATININE 1.12 mg/dL (0.55-1.02)
[2020-07-10 18:56] LABS: TROPONIN I < 0.015 ng/mL (0.000-0.045)
[2020-07-10 18:57] LABS: BASOPHILS % (AUTO) 0 % (0-1); EOSINOPHILS % (AUTO) 1 % (1-7); LYMPHOCYTES % (AUTO) 8 % (22-44); MEAN CORPUSCULAR HEMOGLOBIN 32.6 pg (27.0-34.8); MEAN CORPUSCULAR HGB CONC 32.6 g/dL (32.4-35.8); MONOCYTES % (AUTO) 7 % (2-9); NEUTROPHILS % (AUTO) 84 % (42-75); PLATELET COUNT 481 x10^3/uL (130-400); RED BLOOD COUNT 3.59 x10^6/uL (3.82-5.3); RED CELL DISTRIBUTION WIDTH 14.1 % (9.6-15.2)
[2020-07-10 18:58] LABS: MD NO
--- NOTE | 2020-07-10 19:05 | NUR ---
SPOKE WITH ERP REGARDING NEED FOR ABX. PER ERP, PT ON DOXY. NO ADDITIONAL ABX ORDERED AT THIS TIME
[2020-07-10 19:07] VITALS: BP 121/70
[2020-07-10] MEDS ORDERED: MAALOX/HYOSCYAMINE/LIDOCAINE 45 ML BTL ONE (19:36)
--- NOTE | 2020-07-10 19:39 | NUR ---
PT MEDICATED PER VERBAL ORDER WITH GI COCKTAIL. DC EDUCATION PROVIDED, PT DEMONSTRATES UNDERSTANDING. PT AMBULATED STEADILY TO DC WITH RN. TO TAKE TAXI HOME
[2020-07-11] MEDS ORDERED: MAALOX/HYOSCYAMINE/LIDOCAINE 45 ML BTL PO ONE (01:00)
== END 2020-07-10 19:41 | disposition home or self-care (01) ==
LOC: ED 18:46
DX: J90 Pleural effusion, not elsewhere classified (principal); R07.1 Chest pain on breathing; R06.02 Shortness of breath; R07.89 Other chest pain; I10 Essential (primary) hypertension; I48.91 Unspecified atrial fibrillation; I25.2 Old myocardial infarction; Z87.891 Personal history of nicotine dependence; Z86.73 Personal history of transient ischemic attack (TIA), and cerebral infarction without residual deficits
CPT/HCPCS: 36415; 71045; 80048; 82040; 84484; 85025; 93005; 99285